=== PATIENT | male | born 1955 | race African-American/Black ===

== ENCOUNTER 2017-02-16 13:10 | Emergency (ER) | payer MEDICARE, OTHER ==
[~2017-02-16] VITALS: Ht 175.3 cm; Wt 100.0 kg
[2017-02-16 13:31] VITALS: BP 144/76; PULSE 100; RESP 14; TEMP 98.7; O2SAT 99
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
[2017-02-16 15:11] VITALS: BP 153/86; PULSE 79; RESP 18; O2SAT 97
--- NOTE | 2017-02-16 15:16 | RADRPT ---
EXAM DATE/TIME: 02/16/2017 14:50 [place] COMPARISON: No previous studies available for comparison. INDICATIONS : Altered mental status. RADIATION DOSE: 34.43 CTDIvol (mGy) MEDICAL HISTORY : Cerebrovascular disease. Seizures. Hypertension.Diabetes SURGICAL HISTORY : None. ENCOUNTER: Initial ACUITY: 1 day PAIN SCALE: 0/10 LOCATION: cranial TECHNIQUE: Multiple contiguous axial images were obtained of the head. Using automated exposure control and adj ustment of the mA and/or kV according to patient size, radiation dose was kept as low as reasonably a chievable to obtain optimal diagnostic quality images. DICOM format image data is available electro nically for review and comparison. FINDINGS: There is no evidence for intracranial hemorrhage, mass effect, mass lesions, or edema. The visualize d bony structures appear intact. Slight degree of brain atrophy is seen. Moderate periventricular wh ite matter changes are seen nonspecific mostly consistent with chronic small vessel ischemic changes. There are no signs of acute infarction for technique. There is encephalomalacia in the right tempor al lobe and bilateral frontal lobes in addition to ventriculomegaly most likely due to chronic atroph ic changes. Postcraniotomy changes are seen. CONCLUSION: Moderate atrophic and small vessel ischemic changes and old encephalomalacia without any evidence for acute hemorrhage or mass effect. Hannah Barnes MD on February 16, 2017 at 15:12 Board Certified Radiologist. This report was verified electronically.
[2017-02-16 15:52] LABS: BILIRUBIN, URINE NEG (NEG); BLOOD, URINE NEG (NEG); GLUCOSE,URINE 1000 mg/dL (NEG); KETONE, URINE NEG (NEG); NITRITE,URINE NEG (NEG); PH, URINE 5.5 (5.0-8.5); SQUAMOUS EPITHELIAL CELL URINE <1 /hpf (0-5); URINE COLOR YELLOW (YELLW/STRAW); URINE LEUKOCYTE ESTERASE NEG (NEG)
== END 2017-02-16 18:22 ==
LOC: NEPD 13:10 → NEDAMB 18:22
DX: F91.8 Other conduct disorders (principal); E11.9 Type 2 diabetes mellitus without complications; E78.00 Pure hypercholesterolemia, unspecified; F41.9 Anxiety disorder, unspecified; G93.89 Other specified disorders of brain; I10 Essential (primary) hypertension; I48.91 Unspecified atrial fibrillation; K21.9 Gastro-esophageal reflux disease without esophagitis; G47.00 Insomnia, unspecified
CPT/HCPCS: 70450; 81001; 99284

== ENCOUNTER 2017-07-06 16:56 | Emergency (ER) | payer MEDICARE, OTHER ==
[~2017-07-06] VITALS: Ht 182.9 cm; Wt 100.0 kg
[2017-07-06 17:04] VITALS: BP 178/88; PULSE 105; RESP 16; TEMP 97.8; O2SAT 95
--- NOTE | 2017-07-06 17:10 | PD ---
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 The patient reports right-sided headache for the last month. He describes the pain as throbbing and is concerned that he may have another aneurysm. Pain has been constant. He comes from [facility] where he states they have given him Tylenol which seems to help with the pain. No fevers. No visual disturbances. No new neurologic deficits. PFSH Past Medical History Atrial Fibrillation: Yes Anxiety: Yes Cardiovascular Problems: Yes High Cholesterol: Yes Cerebrovascular Accident: Yes Diabetes: Yes GERD: Yes Hypertension: Yes Insomnia: Yes Seizures: Yes Social History Alcohol Use: No Tobacco Use: No Substance Use: No Allergies-Medications (Allergen,Severity, Reaction): Coded Allergies: No Known Allergies (Unverified , 07/06/17) Reported Meds & Prescriptions Reported Meds & Active Scripts Active Reported Zofran (Ondansetron HCl) 4 Mg Tab 4 Mg PO Q6HR PRN Xarelto (Rivaroxaban) 20 Mg Tab 20 Mg PO DAILY Vitamin D-1000 (Cholecalciferol) 1,000 Unit Tab 1,000 Units PO DAILY Tylenol (Acetaminophen) 325 Mg Tab 650 Mg PO Q6H PRN Tagamet Hb (Cimetidine) 200 Mg Tab 200 Mg PO BID Sertraline (Sertraline HCl) 100 Mg Tab 200 Mg PO DAILY Seroquel (Quetiapine Fumarate) 50 Mg Tab 50 Mg PO BID [Apoaequorin] 10 Mg PO DAILY Novolog Inj (Insulin Aspart) 1,000 Unit/10 Ml Vial 0 SQ DIRECTED Sliding Scale as directed. Norvasc (Amlodipine Besylate) 2.5 Mg Tab 2.5 Mg PO DAILY Levemir Inj (Insulin Detemir) 1,000 unit/ 10 ML Vial 70 Units SQ DAILY Do not mix with any other Insulin. Levemir Inj (Insulin Detemir) 1,000 unit/ 10 ML Vial 50 Units SQ DAILY Do not mix with any other Insulin. Lantiseptic Multi-Purpose Oint (Zinc Oxide/Menthol/Calamine) 20 %-0.45 %-2 % Oint...g. Keppra (Levetiracetam) 1,000 Mg Tab 1,000 Mg PO TID Hydrocodone-Acetaminophen 7.5 Mg-325 Mg Tab 1 Tab PO Q6H PRN Flomax (Tamsulosin HCl) 0.4 Mg Cap 0.4 Mg PO HS Fioricet (Ygybwgnipq-Hyloootuskakm-Jefxkwwx) 50-300-40 Mg Cap 2 Cap PO Q6H PRN Ferrous Sulfate 325 Mg (65 Mg Iron) Tablet 325 Mg PO BIDPC Docusate Sodium 100 Mg Cap 200 Mg PO BID PRN Depakote DR (Divalproex Sodium) 125 Mg Tabdr 125 Mg PO BID Review of Systems Except as stated in HPI: all other systems reviewed are Neg Physical Exam Narrative GENERAL: Well-developed, well-nourished, awake, alert, no apparent distress. SKIN: Focused skin assessment warm/dry. HEAD: Atraumatic. Extensive scarring throughout scalp from brain surgery. Scars are well-healed. No warmth or erythema. EYES: Pupils equal, round, 3 mm, reactive to light. EOMI. No scleral icterus. No injection or drainage. ENT: No nasal bleeding or discharge. Mucous membranes pink and moist. NECK: Trachea midline. No JVD. CARDIOVASCULAR: Regular rate and rhythm. RESPIRATORY: No accessory muscle use. Clear to auscultation. Breath sounds equal bilaterally. GASTROINTESTINAL: Abdomen soft, non-tender, nondistended. Hepatic and splenic margins not palpable. MUSCULOSKELETAL: No obvious deformities. No clubbing. No cyanosis. No edema. Contractures of the left hand. NEUROLOGICAL: Awake and alert. No obvious cranial nerve deficits. Motor grossly within normal limits. Normal speech. 5 out of 5 muscle strength in right upper and right lower extremity. 4 out of 5 strength in the left upper and left lower extremity. PSYCHIATRIC: Appropriate mood and affect; insight and judgment normal. Data Data Last Documented VS Vital Signs Date Time Temp Pulse Resp B/P (MAP) Pulse Ox O2 Delivery O2 Flow Rate FiO2 07/06/17 17:04 97.8 105 16 178/88 (118) 95 Orders Orders Complete Blood Count With Diff (07/06/17 17:07) Comprehensive Metabolic Panel (07/06/17 17:07) Prothrombin Time / Inr (Pt) (07/06/17 17:07) Act Partial Throm Time (Ptt) (07/06/17 17:07) Iv Access Insert/Monitor (07/06/17 17:07) Ecg Monitoring (07/06/17 17:07) Oximetry (07/06/17 17:07) Sodium Chloride 0.9% Flush (Ns Flush) (07/06/17 17:15) Ct Brain W/O Iv Contrast(Rout) (07/06/17 ) Metoclopramide Inj (Reglan Inj) (07/06/17 17:15) Acetaminophen (Tylenol) (07/06/17 17:15) Labs Laboratory Tests Test 07/06/17 17:30 White Blood Count 5.6 TH/MM3 Red Blood Count 4.81 MIL/MM3 Hemoglobin 13.3 GM/DL Hematocrit 40.3 % Mean Corpuscular Volume 83.8 FL Mean Corpuscular Hemoglobin 27.7 PG Mean Corpuscular Hemoglobin Concent 33.1 % Red Cell Distribution Width 14.0 % Platelet Count 193 TH/MM3 Mean Platelet Volume 10.2 FL Neutrophils (%) (Auto) 58.7 % Lymphocytes (%) (Auto) 20.3 % Monocytes (%) (Auto) 15.2 % Eosinophils (%) (Auto) 4.9 % Basophils (%) (Auto) 0.9 % Neutrophils # (Auto) 3.3 TH/MM3 Lymphocytes # (Auto) 1.1 TH/MM3 Monocytes # (Auto) 0.9 TH/MM3 Eosinophils # (Auto) 0.3 TH/MM3 Basophils # (Auto) 0.1 TH/MM3 CBC Comment DIFF FINAL Differential Comment Prothrombin Time 9.9 SEC Prothromb Time International Ratio 1.0 RATIO Activated Partial Thromboplast Time 22.4 SEC Blood Urea Nitrogen 9 MG/DL Creatinine 1.06 MG/DL Random Glucose 264 MG/DL Total Protein 7.5 GM/DL Albumin 4.0 GM/DL Calcium Level 9.0 MG/DL Alkaline Phosphatase 121 U/L Aspartate Amino Transf (AST/SGOT) 79 U/L Alanine Aminotransferase (ALT/SGPT) 111 U/L Total Bilirubin 0.3 MG/DL Sodium Level 138 MEQ/L Potassium Level 4.2 MEQ/L Chloride Level 104 MEQ/L Carbon Dioxide Level 24.1 MEQ/L Anion Gap 10 MEQ/L Estimat Glomerular Filtration Rate 87 ML/MIN MDM Medical Decision Making Medical Screen Exam Complete: Yes Emergency Medical Condition: Yes Differential Diagnosis Tension headache, cluster headache, migraine headache, SAH, meningitis/ encephalitis unlikely, intracranial abnormality Narrative Course Initial vital signs show heart rate 105, blood pressure 178/88, pulse ox 95% on room air, oral temperature 97.8F. CBC is essentially unremarkable. CMP is remarkable for random glucose 264, AST 79, ALT 111. CT head: CONCLUSION: 1. Large area of stable encephalomalacia in the right parietal and temporal lobes consistent with prior infarction. 2. No acute hemorrhage or mass effect. 3. The ventricular system remains stable in appearance. Patient was given Reglan and Tylenol and on reassessment feels significantly improved. He has been awake and talking the entire time he has been in the emergency department. There are no new neurologic findings. He states his headache has completely resolved. He is asking me about giving him a prescription for Viagra. I told him he would need to follow-up with his primary care physician for this. I discussed the case with Dr. Allen who sent the patient here from [facility] for evaluation. Patient will be discharged back to [facility]. Diagnosis Primary Impression: Headache Qualified Codes: R51 - Headache Referrals: Primary Care Physician 2 days Additional Instructions: Follow-up with your primary care physician in the next 1-2 days. Return to the emergency department for worsening symptoms or any other concerns. Disposition: 01 DISCHARGE HOME Condition: Stable Abdi Hughes MD July 06, 2017 17:10
[2017-07-06] MEDS ORDERED: NOVOLOGP2 SQ (17:14)
[2017-07-06] MEDS ORDERED: CIME200T23 PO (17:14)
[2017-07-06] MEDS ORDERED: BUTA1CAP PO (17:14)
[2017-07-06] MEDS ORDERED: LEVEMIR SQ (17:14)
[2017-07-06] MEDS ORDERED: APOAEQUORIN PO (17:14)
[2017-07-06] MEDS ORDERED: XARE20TA PO (17:14)
[2017-07-06] MEDS ORDERED: SERT-129 PO (17:14)
[2017-07-06] MEDS ORDERED: TYLE325T PO (17:14)
[2017-07-06] MEDS ORDERED: NORV2.5T PO (17:14)
[2017-07-06] MEDS ORDERED: HYDR-3580 PO (17:14)
[2017-07-06] MEDS ORDERED: FERR325T18 PO (17:14)
[2017-07-06] MEDS ORDERED: TAMS5CAP PO (17:14)
[2017-07-06] MEDS ORDERED: KEPP10002 PO (17:14)
[2017-07-06] MEDS ORDERED: VITA1000 PO (17:14)
[2017-07-06] MEDS ORDERED: ZOFR4TAB PO (17:14)
[2017-07-06] MEDS ORDERED: [UNRECOGNIZED DRUG - CODE] (17:14)
[2017-07-06] MEDS ORDERED: DEPA125T PO (17:14)
[2017-07-06] MEDS ORDERED: SERO50TA PO (17:14)
[2017-07-06] MEDS ORDERED: DOCU100C15 PO (17:14)
[2017-07-06] MEDS ORDERED: METOCLOPRAMIDE HCL 10 MG/2 ML VIAL IV PUSH ONE (17:15)
[2017-07-06] MEDS ORDERED: SODIUM CHLORIDE 0.9% FLUSH 10 ML FLUSH IV FLUSH PRN (17:15)
[2017-07-06] MEDS ORDERED: ACETAMINOPHEN 325 MG TAB PO ONE (17:15)
[2017-07-06 17:46] LABS: AUTOMATED NEUTROPHIL # 3.3 TH/MM3 (1.8-7.7); BASOPHIL # 0.1 TH/MM3 (0-0.2); BASOPHIL % 0.9 % (0.0-2.0); EOSINOPHIL # 0.3 TH/MM3 (0-0.4); EOSINOPHIL % 4.9 % (0.0-4.0); HEMATOCRIT 40.3 % (39.0-51.0); HEMOGLOBIN 13.3 GM/DL (13.0-17.0); LYMPH % 20.3 % (9.0-44.0); LYMPHOCYTE # 1.1 TH/MM3 (1.0-4.8); MEAN CELL VOLUME 83.8 FL (80.0-100.0); MEAN CORPUSCULAR HEMOGLOBIN 27.7 PG (27.0-34.0); MEAN CORPUSCULAR HGB CONC 33.1 % (32.0-36.0); MEAN PLATELET VOLUME 10.2 FL (7.0-11.0); MONO % 15.2 % (0.0-8.0); MONOCYTE # 0.9 TH/MM3 (0-0.9); NEUT % 58.7 % (16.0-70.0); PLATELET COUNT 193 TH/MM3 (150-450); RED BLOOD COUNT 4.81 MIL/MM3 (4.50-5.90); WHITE BLOOD COUNT 5.6 TH/MM3 (4.0-11.0)
[2017-07-06 18:03] LABS: ALKALINE PHOSPHATASE 121 U/L (45-117); TOTAL BILIRUBIN ADULT 0.3 MG/DL (0.2-1.0); TOTAL PROTEIN 7.5 GM/DL (6.4-8.2)
[2017-07-06 18:13] LABS: ALT (GPT) 111 U/L (12-78); AST (GOT) 79 U/L (15-37); BICARBONATE 24.1 MEQ/L (21.0-32.0); BLOOD UREA NITROGEN 9 MG/DL (7-18); CHLORIDE 104 MEQ/L (98-107); CREATININE 1.06 MG/DL (0.60-1.30); GLOMERULAR FILTRATION RATE 87 ML/MIN (>89); GLUCOSE,RANDOM 264 MG/DL (74-106); SODIUM (NA) 138 MEQ/L (136-145)
[2017-07-06 18:22] LABS: PROTHROMBIN TIME - PATIENT 9.9 SEC (9.8-11.6)
--- NOTE | 2017-07-06 18:27 | RADRPT ---
EXAM DATE: 07/06/2017 6:13 PM EDT AGE/SEX: 61 years / Male INDICATIONS: Headache CLINICAL DATA: This is the patient's initial encounter. Patient reports that signs and symptoms have been present for 1 month and indicates a pain score of 10/10. MEDICAL/SURGICAL HISTORY: Cerebrovascular disease. Hypertension. Diabetes. Seizures, A fib Cran iotomy. RADIATION DOSE: 66.34 CTDI (mGy) COMPARISON: . TECHNIQUE: CT of the head without contrast. Using automated exposure control and adjustment of the mA and/or kV according to patient size, radiation dose was kept as low as reasonably achievable to ob tain optimal diagnostic quality images. FINDINGS: Cerebrum: A large area of encephalomalacia is again noted involving the right parietal and temporal lobes with ex vacuo change involving the right lateral ventricle. Periventricular white matter lucenc ies are again noted without significant change. No evidence of midline shift, mass lesion, hemorrhage or acute infarction. No extraaxial fluid collections are seen. Posterior Fossa: The cerebellum and brainstem are intact. The 4th ventricle is midline. The cerebe llopontine angle is unremarkable. Extracranial: The visualized portion of the orbits is intact. Skull: The patient is again noted to be status post right-sided craniotomy with postsurgical changes which appear stable. CONCLUSION: 1. Large area of stable encephalomalacia in the right parietal and temporal lobes consistent with pr ior infarction. 2. No acute hemorrhage or mass effect. 3. The ventricular system remains stable in appearance. Electronically signed by: Yury Ellsworth MD 07/06/2017 6:25 PM EDT
[2017-07-07] MEDS ORDERED: REGL10TA5 PO (13:30)
[2017-07-07] MEDS ORDERED: MAPA500T13 PO (13:30)
== END 2017-07-06 22:08 | disposition home or self-care (01) ==
LOC: NEPD 16:56 → NEDAMB 22:08
DX: R51 Headache (principal); I69.954 Hemiplegia and hemiparesis following unspecified cerebrovascular disease affecting left non-dominant side; I25.10 Atherosclerotic heart disease of native coronary artery without angina pectoris; I48.91 Unspecified atrial fibrillation; F41.9 Anxiety disorder, unspecified; E78.00 Pure hypercholesterolemia, unspecified; E11.9 Type 2 diabetes mellitus without complications; K21.9 Gastro-esophageal reflux disease without esophagitis; I10 Essential (primary) hypertension
CPT/HCPCS: 70450; 80053; 85025; 85610; 85730; 96374; 99284; J2765

== ENCOUNTER 2017-07-07 10:02 | Emergency (ER) | payer MEDICARE, OTHER ==
[~2017-07-07] VITALS: Ht 170.2 cm; Wt 90.9 kg
[~2017-07-07 10:02] MED LIST: APOAEQUORIN PO; BUTA1CAP PO; CIME200T23 PO; DEPA125T PO; DOCU100C15 PO; FERR325T18 PO; HYDR-3580 PO; KEPP10002 PO; LEVEMIR SQ; NORV2.5T PO; NOVOLOGP2 SQ; SERO50TA PO; SERT-129 PO; TAMS5CAP PO; TYLE325T PO; VITA1000 PO; XARE20TA PO; ZOFR4TAB PO; [UNRECOGNIZED DRUG - CODE]
[2017-07-07 10:42] VITALS: BP 177/85; PULSE 103; RESP 16; TEMP 98.2; O2SAT 98
--- NOTE | 2017-07-07 13:28 | PD ---
HPI Chief Complaint: Headache Time Seen by Provider: 13:21 Travel History International Travel<30 days: No Contact w/Intl Traveler<30days: No Traveled to known affect area: No History of Present Illness HPI 61-year-old male with history of right-sided CVA, and history of recurrent headaches, returns to emergency department from the [facility] with complaints of recurrent headache. Patient was seen yesterday and given Reglan and Tylenol with resolution of his symptoms. He had a full workup including labs and CT scan which showed no acute process. Patient states his headache is now 8 out of 10. He denies any other symptoms. He denies changes in his neurological status. He is talkative and appears comfortable. He has no known drug allergies. PFSH Past Medical History Atrial Fibrillation: Yes Anxiety: Yes Cardiovascular Problems: Yes High Cholesterol: Yes Cerebrovascular Accident: Yes Coronary Artery Disease: Yes Diabetes: Yes GERD: Yes Hypertension: Yes Insomnia: Yes Myocardial Infarction: Yes Seizures: Yes Past Surgical History Other Surgery: Yes (RIGHT ANKLE, LEFT JAW, AND ANEURYSM SX, CARDIAC CATH WITH STENTS) Social History Alcohol Use: No Tobacco Use: No Substance Use: No Allergies-Medications (Allergen,Severity, Reaction): Coded Allergies: No Known Allergies (Unverified , 07/07/17) Reported Meds & Prescriptions Reported Meds & Active Scripts Active Mapap Extra Strength (Acetaminophen) 500 Mg Tab 1,000 Mg PO Q6HR PRN Reglan (Metoclopramide HCl) 10 Mg Tab 10 Mg PO QID Reported Zofran (Ondansetron HCl) 4 Mg Tab 4 Mg PO Q6HR PRN Xarelto (Rivaroxaban) 20 Mg Tab 20 Mg PO DAILY Vitamin D-1000 (Cholecalciferol) 1,000 Unit Tab 1,000 Units PO DAILY Tylenol (Acetaminophen) 325 Mg Tab 650 Mg PO Q6H PRN Tagamet Hb (Cimetidine) 200 Mg Tab 200 Mg PO BID Sertraline (Sertraline HCl) 100 Mg Tab 200 Mg PO DAILY Seroquel (Quetiapine Fumarate) 50 Mg Tab 50 Mg PO BID [Apoaequorin] 10 Mg PO DAILY Novolog Inj (Insulin Aspart) 1,000 Unit/10 Ml Vial 0 SQ DIRECTED Sliding Scale as directed. Norvasc (Amlodipine Besylate) 2.5 Mg Tab 2.5 Mg PO DAILY Levemir Inj (Insulin Detemir) 1,000 unit/ 10 ML Vial 70 Units SQ DAILY Do not mix with any other Insulin. Levemir Inj (Insulin Detemir) 1,000 unit/ 10 ML Vial 50 Units SQ DAILY Do not mix with any other Insulin. Lantiseptic Multi-Purpose Oint (Zinc Oxide/Menthol/Calamine) 20 %-0.45 %-2 % Oint...g. Keppra (Levetiracetam) 1,000 Mg Tab 1,000 Mg PO TID Hydrocodone-Acetaminophen 7.5 Mg-325 Mg Tab 1 Tab PO Q6H PRN Flomax (Tamsulosin HCl) 0.4 Mg Cap 0.4 Mg PO HS Fioricet (Jsbsawmgtf-Osiufjullwdsy-Hzbicwfo) 50-300-40 Mg Cap 2 Cap PO Q6H PRN Ferrous Sulfate 325 Mg (65 Mg Iron) Tablet 325 Mg PO BIDPC Docusate Sodium 100 Mg Cap 200 Mg PO BID PRN Depakote DR (Divalproex Sodium) 125 Mg Tabdr 125 Mg PO BID Review of Systems Except as stated in HPI: all other systems reviewed are Neg General / Constitutional: No: Fever Eyes: No: Visual changes HENT: No: Headaches Cardiovascular: No: Chest Pain or Discomfort Respiratory: No: Shortness of Breath Gastrointestinal: No: Abdominal Pain Genitourinary: No: Dysuria Musculoskeletal: No: Pain Skin: No Rash Neurologic: Positive: Headache, No: Weakness Psychiatric: No: Depression Endocrine: No: Polydipsia Hematologic/Lymphatic: No: Easy Bruising Physical Exam Narrative GENERAL: Patient appears in mild distress. He recalls being her yesterday. SKIN: Warm and dry. Normal color. Normal turgor. HEAD: Atraumatic. Normocephalic. EYES: Pupils equal and round. No scleral icterus. No injection or drainage. ENT: No nasal bleeding or discharge. Mucous membranes pink and moist. Pharynx is clear. Airways patent. NECK: Trachea midline. Supple and nontender. CARDIOVASCULAR: Regular rate and rhythm. RESPIRATORY: No accessory muscle use. Clear to auscultation. Breath sounds equal bilaterally. MUSCULOSKELETAL: Extremities without clubbing, cyanosis, or edema. No obvious deformities. NEUROLOGICAL: Awake and alert. No obvious cranial nerve deficits. Motor grossly within normal limits. Patient has diminished use of his left hand which is chronic for the patient. He notes no changes from baseline. Normal speech. PSYCHIATRIC: Appropriate mood and affect; insight and judgment normal. Data Data Last Documented VS Vital Signs Date Time Temp Pulse Resp B/P (MAP) Pulse Ox O2 Delivery O2 Flow Rate FiO2 07/07/17 10:42 98.2 103 16 177/85 (115) 98 Orders Orders Metoclopramide Inj (Reglan Inj) (07/07/17 13:30) Acetaminophen (Tylenol) (07/07/17 13:30) Ed Discharge Order (07/07/17 13:59) MDM Medical Decision Making Medical Screen Exam Complete: Yes Emergency Medical Condition: Yes Medical Record Reviewed: Yes Differential Diagnosis Recurrent headache. History CVA. Left-sided weakness. Narrative Course I felt based on my history and physical that the patient did not require repeat CT scan at this time. Patient is given Reglan 10 mg IM as well as 1000 mg acetaminophen. Patient is reassessed and felt to be improved and is requesting to go home. Patient is given a prescription for Reglan 10 mg up to 4 times daily #120 Patient is given Mapap X strength 500 mg tabs he is to take 2 tablets every 6 hours as needed headache #80. Patient to follow-up with his primary care physician. Patient can return if symptoms worsen as needed. Diagnosis Primary Impression: Recurrent headache Patient Instructions: General Instructions Additional Instructions: Patient is given a prescription for Reglan 10 mg up to 4 times daily #120 Patient is given Mapap X strength 500 mg tabs he is to take 2 tablets every 6 hours as needed headache #80. Patient to follow-up with his primary care physician. Patient can return if symptoms worsen as needed. Med/Other Pt SpecificInfo: Prescription(s) given Scripts Acetaminophen (Mapap Extra Strength) 500 Mg Tab 1000 MG PO Q6HR Y for PAIN, #80 TAB 0 Refills Prov: Ranjeet Armstrong MD 07/07/17 Metoclopramide (Reglan) 10 Mg Tab 10 MG PO QID, #120 TAB 0 Refills Prov: Ranjeet Armstrong MD 07/07/17 Disposition: 01 DISCHARGE HOME Condition: Stable Abner Angeles July 07, 2017 13:28
[2017-07-07] MEDS ORDERED: MAPA500T13 PO (13:30)
[2017-07-07] MEDS ORDERED: METOCLOPRAMIDE HCL 10 MG/2 ML VIAL IM ONE (13:30)
[2017-07-07] MEDS ORDERED: REGL10TA5 PO (13:30)
[2017-07-07] MEDS ORDERED: ACETAMINOPHEN 500 MG CPLT PO ONE (13:30)
== END 2017-07-07 15:48 ==
LOC: NEDAMB 10:02
DX: R51 Headache (principal); E11.9 Type 2 diabetes mellitus without complications; I10 Essential (primary) hypertension; I25.10 Atherosclerotic heart disease of native coronary artery without angina pectoris; I48.91 Unspecified atrial fibrillation; Z79.01 Long term (current) use of anticoagulants; Z79.4 Long term (current) use of insulin
CPT/HCPCS: 96372; 99283; J2765

== ENCOUNTER 2017-07-22 21:51 | Emergency (ER) | payer MEDICARE, OTHER ==
[~2017-07-22] VITALS: Ht 182.9 cm; Wt 85.0 kg
[~2017-07-22 21:51] MED LIST changes: +MAPA500T13 PO; +REGL10TA5 PO
[2017-07-22 22:03] VITALS: BP 172/83; PULSE 91; RESP 18; TEMP 98.2; O2SAT 95
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
[2017-07-22] MEDS ORDERED: ACETAMINOPHEN 325 MG TAB PO ONE (22:30)
[2017-07-22 22:52] LABS: BILIRUBIN, URINE NEG (NEG); BLOOD, URINE NEG (NEG); GLUCOSE,URINE 1000 mg/dL (NEG); KETONE, URINE TRACE mg/dL (NEG); NITRITE,URINE NEG (NEG); PH, URINE 5.5 (5.0-8.5); SQUAMOUS EPITHELIAL CELL URINE <1 /hpf (0-5); URINE COLOR LIGHT-YELLOW (YELLW/STRAW); URINE LEUKOCYTE ESTERASE NEG (NEG)
[2017-07-23 05:00] VITALS: BP 162/88; PULSE 75; RESP 18; O2SAT 97
[2017-07-23 08:09] VITALS: BP 198/83; PULSE 78; RESP 17; O2SAT 97
[2017-07-23] MEDS ORDERED: RIVAROXABAN 20 MG TAB PO ONE (09:45)
[2017-07-23] MEDS ORDERED: FAMOTIDINE 20 MG TAB PO ONE (09:45)
[2017-07-23] MEDS ORDERED: amLODIPine BESYLATE 5 MG TAB PO ONE (09:45)
[2017-07-23] MEDS ORDERED: QUEtiapine FUMARATE 25 MG TAB PO ONE (09:45)
[2017-07-23] MEDS ORDERED: DIVALPROEX SODIUM DELAYED RELEASE 125 MG TAB PO ONE (09:45)
[2017-07-23] MEDS ORDERED: levETIRAcetam 500 MG TAB PO ONE (09:45)
[2017-07-23] MEDS ORDERED: SERTRALINE HCL 100 MG TAB PO ONE (09:45)
[2017-07-23 11:49] VITALS: BP 127/84; PULSE 90; RESP 16; TEMP 98.8; O2SAT 95
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
[2017-07-23 16:21] VITALS: BP 173/83; PULSE 77; RESP 18; TEMP 98.1; O2SAT 95
[2017-07-23 16:22] VITALS: BP 173/83; TEMP 98.1
== END 2017-07-23 16:34 | disposition home or self-care (01) ==
LOC: NEPC 21:51
DX: F43.22 Adjustment disorder with anxiety (principal); I48.91 Unspecified atrial fibrillation; E11.9 Type 2 diabetes mellitus without complications; I10 Essential (primary) hypertension
CPT/HCPCS: 81001; 99283